=== PATIENT | male | born 1935 | race Caucasian/White ===

== ENCOUNTER 2020-07-03 23:37 | Emergency (ER) | payer MEDICARE, OTHER, SELFPAY ==
[2020-07-03 23:43] VITALS: BP 154/69; PULSE 65; RESP 16; TEMP 36.9; O2SAT 98; BMI 24.3
--- NOTE | 2020-07-03 23:49 | XR_ITS ---
WS: [id number] PORTABLE CHEST HISTORY: Resolved chest pain. COMPARISON: None available. Mild interstitial thickening at the lung bases. No pneumonia. Normal vasculature. No pleural effusion or pneumothorax. Cardiac size: Normal. Mediastinum/Aorta: Mild atherosclerosis aorta. Mild bilateral AC joint arthritis. XR/XR chest 1V portable [id number] IMPRESSION: No acute cardiopulmonary disease. 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
--- NOTE | 2020-07-03 23:49 | ECG_ITS ---
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 Measurements Intervals [place] Rate: 55 P: 50 MA: 157 QRS: -15 QRSD: 93 T: 78 QT: 425 QTc: 410 Interpretive Statements SINUS BRADYCARDIA WITH OCCASIONAL ECTOPIC PREMATURE COMPLEXES SEPTAL MYOCARDIAL INFARCTION , OF INDETERMINATE AGE [40+ ms Q WAVE IN V1/V2] No previous ECG available for comparison Electronically Signed On 07-04-2020 16:39:07 CASTING SUPERVISOR by Eduardo Denson M.D. [id number]
[2020-07-03 23:59] VITALS: BP 154/56; PULSE 56; RESP 16; O2SAT 97
[2020-07-04 00:06] LABS: Basophils # 0.1 10^3/uL (0.0-0.1); Basophils % 0.9 %; Eosinophils # 0.1 10^3/uL (0.0-0.8); Eosinophils % 1.3 %; Hematocrit 40.7 % (42.0-52.0); Hemoglobin 13.1 g/dL (11.7-16.6); Lymphocytes # 2.1 10^3/uL (0.8-4.8); Lymphocytes % 24.3 %; Mean Corpuscular HGB Conc 32.2 g/dL (30.0-36.0); Mean Corpuscular Hemoglobin 31.1 pg (28.0-34.0); Mean Corpuscular Volume 96.7 fL (80-94); Mean Platelet Volume 10.5 fL (7.4-10.4); Monocytes # 0.9 10^3/uL (0.2-0.9); Monocytes % 10.2 %; Neutrophils # 5.49 10^3/uL (1.8-7.7); Neutrophils % 63.1 %; Nucleated Red Blood Cells % 0 %; Platelet Count 160 10^3/cmm (130-400); Red Blood Count 4.21 10^6/uL (4.1-5.3); Red Cell Distribution Width 12.4 % (12.1-15.1); White Blood Count 8.7 10^3/uL (4.0-10.0)
[2020-07-04 00:27] LABS: Troponin(5th) Baseline 11 ng/L (0-15)
[2020-07-04 00:34] VITALS: BP 140/67; PULSE 58; RESP 16; O2SAT 96
[2020-07-04 00:36] LABS: Alanine Aminotransferase 11 U/L (0-41); Albumin Level 4.4 g/dL (3.5-5.2); Alkaline Phosphatase 62 IU/L (40-130); Anion Gap 14.2 (5-19); Aspartate Amino Transferase 15 U/L (0-40); Blood Urea Nitrogen 18 mg/dL (8-23); Calcium 9.1 mg/dL (8.5-10.5); Carbon Dioxide 26 mmol/L (22-29); Chloride 105 mmol/L (98-107); Creatine Phosphokinase 39 U/L (39-308); Globulin 1.6 g/dL (1.3-4.6); Glucose 153 mg/dL (65-115); NT Pro B Type Natriuretic Pept 379 pg/mL (0-450); Osmolality Calculated 297 mOsm/kg (285-295); Potassium 4.2 mmol/L (3.5-5.1); Sodium 141 mmol/L (136-145); Total Bilirubin 0.4 mg/dL (0.15-1.2)
[2020-07-04 01:01] VITALS: BP 140/64; PULSE 56; RESP 21; O2SAT 94
--- NOTE | 2020-07-04 01:19 | ED_ITS ---
HPI - Chest Pain General: Chief Complaint: Chest Pain Stated Complaint: CP Time Seen by Provider: 07/03/20 23:40 History of Present Illness: HPI narrative: 84-year-old gentleman with a history of coronary disease and stenting, presents with chest discomfort that started this evening at home. He has a with Alzheimer's dementia, and he had asked her to go to bed. She argued with him a bit, after which she began to have some chest discomfort. It worsened, so he called an ambulance. He received aspirin and nitroglycerin in route, but states that the pain was gone even before he received the nitroglycerin. MD complaint: chest pain Pertinent past history: coronary artery disease Onset (ago): minute(s) Timing of current episode: now resolved Prior episodes: No Onset: other Pain location: substernal Pain radiation: none Severity: moderate Quality: tightness Relieving factors: other Exacerbating factors: stress Associated symptoms: Deny abdominal pain, dyspnea, fever(s), nausea, palpitations or vomiting Treatment prior to arrival: aspirin and nitroglycerin Review of Systems Const: Denies: fever(s) Eyes: Denies: change in vision ENMT: Denies: odynophagia, post nasal drip or sinus pain Card: Reports: chest pain; Denies: palpitations or irregular heart rhythm Resp: Denies: dyspnea GI: Denies: abdominal pain, nausea or vomiting : Denies: difficulty urinating or hematuria Musc: Denies: neck pain or joint warmth Skin/Breast: Denies: rash, pruritus or erythema Neuro: Denies: headache(s), dizziness or vertigo Psych: Denies: anxiety Physical Exam Const: GENERAL APPEARANCE: well developed ORIENTATION/CONSCIOUSNESS: Yes oriented to person, Yes oriented to place and Yes oriented to time HENMT: COMMON NORMALS: normocephalic, external ears normal and Normal external nose present HEAD & SCALP: normocephalic FACE & SINUS: normal facial exam NOSE: Normal external nose present and No nasal discharge present EXTERNAL EAR: Yes external ears normal Eye: COMMON NORMALS: Equal, round and reactive pupils present, EOMs intact bilaterally and conjunctivae normal EYELID: eyelids normal CONJUNCTIVA: Yes conjunctivae normal PUPIL: Yes Equal, round and reactive pupils present Neck/C-Spine: GENERAL: No tracheal deviation Chest: COMMONS NORMALS: normal inspection of the chest CHEST: No tenderness Resp: COMMON NORMALS: clear to auscultation bilaterally EFFORT & INSPECTION: No tachypneic, No respiratory distress, No retractions, No uses accessory muscles and No tracheal deviation AUSCULTATION: clear to auscultation bilaterally, no rhonchi, no wheezes and lung sounds not diminished Cardio: COMMON NORMALS: regular rate and regular rhythm RATE: regular rate RHYTHM: regular rhythm HEART SOUNDS: no murmurs PERIPHERAL PULSES: radial pulses present GI: INSPECTION: No abdominal distension AUSCULTATION: No Hyperactive bowel sounds present and No Hypoactive bowel sounds present PALPATION: No Guarding due to palpation present (GI) and No Rigid due to palpation PERCUSSION: no dullness to percussion and no tympanic to percussion Neuro: SENSORIUM/ORIENTATION: Yes oriented to person, Yes oriented to place and Yes oriented to time Psych: COMMON NORMALS: mental status grossly normal Skin: COMMON NORMALS: no rashes or lesions noted GENERAL SKIN EXAM: no rashes or lesions noted Course Vital Signs: Vital signs: Vital Signs Temperature 98.4 F 07/03/20 23:43 Pulse Rate 56 L 07/04/20 01:59 Respiratory Rate 16 07/04/20 01:59 Blood Pressure 140/78 07/04/20 01:59 Pulse Oximetry 96 07/04/20 01:59 MDM - Chest Pain 2 MDM Narrative: Medical decision making narrative: 84-year-old male with a history of coronary disease in the past. He presents after a short period of chest pain at home. It was essentially self resolved, although nitroglycerin may have helped it. His first EKG shows a sinus bradycardia with some PVCs and no acute ST changes. His second shows the same. His troponin was normal and did not elevated 2 hours significantly. He has had some runs of frequent PVCs that have been asymptomatic on the monitor since he has been here. His electrolytes are normal. He will be allowed home. He knows to return for any return of his symptoms. Lab Data: Labs: Lab Results 07/03/20 07/03/20 07/03/20 Range/Units 23:53 23:53 23:53 WBC 8.7 (4.0-10.0) 10^3/ uL RBC 4.21 (4.1-5.3) 10^6/u L Hgb 13.1 (11.7-16.6) g/dL Hct 40.7 L (42.0-52.0) % MCV 96.7 H (80-94) fL MCH 31.1 (28.0-34.0) pg MCHC 32.2 (30.0-36.0) g/dL RDW 12.4 (12.1-15.1) % Plt Count 160 (130-400) 10^3/c mm MPV 10.5 H (7.4-10.4) fL Neut % (Auto) 63.1 % Lymph % (Auto) 24.3 % Lewis % (Auto) 10.2 % Eos % (Auto) 1.3 % Baso % (Auto) 0.9 % Neut # (Auto) 5.49 (1.8-7.7) 10^3/u L Lymph # (Auto) 2.1 (0.8-4.8) 10^3/u L [place] # (Auto) 0.9 (0.2-0.9) 10^3/u L Eos # (Auto) 0.1 (0.0-0.8) 10^3/u L Baso # (Auto) 0.1 (0.0-0.1) 10^3/u L Nucleated RBC % (a uto) 0 % Nucleated RBCs # 0.0 /100WBC Sodium 141 (136-145) mmol/L Potassium 4.2 (3.5-5.1) mmol/L Chloride 105 (98-107) mmol/L Carbon Dioxide 26 (22-29) mmol/L Anion Gap 14.2 (5-19) BUN 18 (8-23) mg/dL Creatinine 0.6 L (0.7-1.2) mg/dL GFR Calculation Not Reportable Glucose 153 H (65-115) mg/dL Calculated Osmolal ity 297 H (285-295) mOsm/k g Calcium 9.1 (8.5-10.5) mg/dL Magnesium 2.0 (1.7-2.3) mg/dL Total Bilirubin 0.4 (0.15-1.2) mg/dL AST 15 (0-40) U/L ALT 11 (0-41) U/L Alkaline Phosphata se 62 (40-130) IU/L Creatine Kinase 39 (39-308) U/L Troponin T Baselin e 11 (0-15) ng/L Troponin T 120 Min [place] (0-15) ng/L Delta Troponin T (0-10) ABS# NT-Pro-B Natriuret Pep 379 (0-450) pg/mL Total Protein 6.0 L (6.6-8.7) g/dL Albumin 4.4 (3.5-5.2) g/dL Globulin 1.6 (1.3-4.6) g/dL 07/04/20 Range/Units 01:50 WBC (4.0-10.0) 10^3/ uL RBC (4.1-5.3) 10^6/u L Hgb (11.7-16.6) g/dL Hct (42.0-52.0) % MCV (80-94) fL MCH (28.0-34.0) pg MCHC (30.0-36.0) g/dL RDW (12.1-15.1) % Plt Count (130-400) 10^3/c mm MPV (7.4-10.4) fL Neut % (Auto) % Lymph % (Auto) % Lewis % (Auto) % Eos % (Auto) % Baso % (Auto) % Neut # (Auto) (1.8-7.7) 10^3/u L Lymph # (Auto) (0.8-4.8) 10^3/u L Lewis # (Auto) (0.2-0.9) 10^3/u L Eos # (Auto) (0.0-0.8) 10^3/u L Baso # (Auto) (0.0-0.1) 10^3/u L Nucleated RBC % (a uto) % Nucleated RBCs # /100WBC Sodium (136-145) mmol/L Potassium (3.5-5.1) mmol/L Chloride (98-107) mmol/L Carbon Dioxide (22-29) mmol/L Anion Gap (5-19) BUN (8-23) mg/dL Creatinine (0.7-1.2) mg/dL GFR Calculation Glucose (65-115) mg/dL Calculated Osmolal ity (285-295) mOsm/k g Calcium (8.5-10.5) mg/dL Magnesium (1.7-2.3) mg/dL Total Bilirubin (0.15-1.2) mg/dL AST (0-40) U/L ALT (0-41) U/L Alkaline Phosphata se (40-130) IU/L Creatine Kinase (39-308) U/L Troponin T Baselin e (0-15) ng/L Troponin T 120 Min [place] 11.96 (0-15) ng/L Delta Troponin T 0.96 (0-10) ABS# NT-Pro-B Natriuret Pep (0-450) pg/mL Total Protein (6.6-8.7) g/dL Albumin (3.5-5.2) g/dL Globulin (1.3-4.6) g/dL Discharge Plan Discharge Patient Disposition: Home Clinical Impression: Chest pain Qualifiers: Chest pain type: unspecified Qualified Code(s): R07.9 - Chest pain, unspecified Condition: Stable Prescriptions: No Action Coreg 12.5 mg Tablet 12.5 mg PO DAILY RF: 0 allopurinol 100 mg Tablet 100 mg PO DAILY RF: 0 simvastatin 40 mg Tablet 40 mg PO QPM RF: 0 potassium citrate 10 mEq (1,080 mg) Tablet Extended Release 10 meq PO BID RF: 0 lisinopril 10 mg Tablet 10 mg PO DAILY RF: 0 aspirin 81 mg Tablet,Chewable 81 mg PO BID RF: 0 Centrum Silver Tablet 1 tab PO DAILY RF: 0 Discharge Orders: Discharge Order (Routine); Ordered 07/04/20 Ordered By: Rodrigo Bagley Referrals: Dolores Nettles DO [Referring] - 4-7 days Discharge Diet: Advance as tolerated Discharge Activity: Increase activity as tolerated Patient Instructions: Chest Pain (ED) Activity Restrictions/Additional Instructions: Return for return of chest pain, shortness of breath, fever greater than 100, cough, other concerning symptoms. Coding Level of Care Code ED Corporate Executive for Last Fwd Exam Comprehensive
--- NOTE | 2020-07-04 01:49 | ECG_ITS ---
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 Measurements Intervals [place] Rate: 54 P: 49 WI: 155 QRS: -20 QRSD: 96 T: 69 QT: 438 QTc: 416 Interpretive Statements SINUS BRADYCARDIA WITH OCCASIONAL ECTOPIC PREMATURE COMPLEXES SEPTAL MYOCARDIAL INFARCTION , OF INDETERMINATE AGE [40+ ms Q WAVE IN V1/V2] Compared to ECG 07/03/2020 23:46:29 No significant changes Electronically Signed On 07-04-2020 16:44:29 COUPLES THERAPIST by Eduardo Denson M.D. [id number]
[2020-07-04 01:59] VITALS: BP 140/78; PULSE 56; RESP 16; O2SAT 96
[2020-07-04 02:19] LABS: Troponin 5 2HR 11.96 ng/L (0-15); Troponin 5 2HR Delta 0.96 ABS# (0-10)
[2020-07-04 02:49] VITALS: BP 147/67; PULSE 56; RESP 16; TEMP 36.6; O2SAT 96
== END 2020-07-04 02:50 | disposition home or self-care (01) ==
PROVIDERS: Emergency Provider Emergency Medicine
DX: R07.9 Chest pain, unspecified (principal); Z79.82 Long term (current) use of aspirin
CPT/HCPCS: 12345; 71045; 80053; 82550; 83735; 83880; 84484; 85025; 93005; 99283; 99284

== ENCOUNTER 2020-09-15 07:03 | Outpatient (CLI) | payer MEDICARE, OTHER, SELFPAY ==
--- NOTE | 2020-09-15 07:00 | XR_ITS ---
WS: [id number] KUB, AP view, 09/15/2020 Clinical Data: HX OF KIDNEY STONES Comparison: None. Findings: No abnormal intraabdominal masses or calcifications are seen. There is no dilatated small bowel or ev idence of obstruction. Fecal material in colon gas obscure detail over both kidneys. Small vascular calcifications are noted . There are clips on the right side of the true pelvis from surgery. 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 XR/XR KUB [id number] Impression: 1. Negative for renal or ureteral calculi. 2. Large amount of fecal material throughout the colon.
== END 2020-09-15 07:04 | disposition home or self-care (01) ==
LOC: RAD 07:17
PROVIDERS: PCP Registered Nurse; Visit Provider Urology
DX: Z87.442 Personal history of urinary calculi (principal)
CPT/HCPCS: 74018; 81003; 88112

== ENCOUNTER → 2020-09-16 08:43 | Outpatient (BNVA) | payer MEDICARE, OTHER, SELFPAY | PROVIDERS: PCP Registered Nurse; Visit Provider Urology | DX: Z01.812 Encounter for preprocedural laboratory examination (principal); D49.4 Neoplasm of unspecified behavior of bladder | CPT/HCPCS: 87635 ==

== ENCOUNTER 2020-09-22 14:27 | Inpatient (IN) | payer MEDICARE, OTHER, SELFPAY ==
[2020-09-20 09:08] VITALS: BMI 28.3
[2020-09-22] VITALS (24 sets, daily range): BP systolic 146–223; BP diastolic 65–104; PULSE 60–82; RESP 9–18; TEMP 36.2–36.6; O2SAT 93–98
--- NOTE | 2020-09-22 11:28 | XR_ITS ---
WS: [id number] Chest 2 views, 09/22/2020 Clinical Data: Newly diagnosed bladder cancer Comparison: Portable chest, 07/03/2020. Findings: No nodules or masses are seen. There is a small right pleural effusion The heart is normal. The pulmonary vascularity is not increased. No pneumonia or pneumothorax is seen. The aortic arch an d descending aorta show calcification and tortuosity. There is a dextroscoliosis. XR/XR chest 2V* [id number] Impression: Atherosclerosis.
--- NOTE | 2020-09-22 12:12 | ECG_ITS ---
[facility] Test Date: 2020-09-22 Pat Name: Alden Castillo Department: Room: Gender: Male Gta: : 1935 Requested By: Zackary Lynn Order Number: [id number] Royce MD: Eduardo Denson M.D. Measurements Intervals [place] Rate: 60 P: 49 NM: 139 QRS: -8 QRSD: 106 T: 69 QT: 431 QTc: 431 Interpretive Statements SINUS RHYTHM WITH OCCASIONAL VENTRICULAR PREMATURE COMPLEXES WITH OCCASIONAL SUPRAVENTRICULAR PREMATURE COMPLEXES ANTEROSEPTAL MYOCARDIAL INFARCTION [40+ ms Q WAVE IN V1-V4], OF INDETERMINATE AGE Compared to ECG 07/04/2020 01:44:30 Ventricular premature complex(es) now present Sinus bradycardia no longer present Myocardial infarct finding still present Electronically Signed On 09-22-2020 16:02:09 HELP DESK ASSISTANT by Eduardo Denson M.D. [id number]
[2020-09-22] MEDS: sodium chloride 0.9% 1,000 ML 30 ML IV (12:16)
[2020-09-22 12:20] LABS: Glucose Point of Care 108 mg/dL (70-110)
[2020-09-22 12:34] LABS: Basophils # 0.1 10^3/uL (0.0-0.1); Basophils % 0.8 %; Eosinophils # 0.1 10^3/uL (0.0-0.8); Eosinophils % 1.3 %; Hematocrit 43.1 % (42.0-52.0); Hemoglobin 14.3 g/dL (11.7-16.6); Lymphocytes # 1.9 10^3/uL (0.8-4.8); Lymphocytes % 26.9 %; Mean Corpuscular HGB Conc 33.2 g/dL (30.0-36.0); Mean Corpuscular Hemoglobin 31.4 pg (28.0-34.0); Mean Corpuscular Volume 94.5 fL (80-94); Mean Platelet Volume 10.6 fL (7.4-10.4); Monocytes # 0.6 10^3/uL (0.2-0.9); Monocytes % 8.9 %; Neutrophils # 4.45 10^3/uL (1.8-7.7); Nucleated Red Blood Cells % 0 %; Platelet Count 174 10^3/cmm (130-400); Red Blood Count 4.56 10^6/uL (4.1-5.3); Red Cell Distribution Width 12.7 % (12.1-15.1); White Blood Count 7.2 10^3/uL (4.0-10.0)
[2020-09-22 12:57] LABS: Alanine Aminotransferase 11 U/L (0-41); Albumin Level 4.5 g/dL (3.5-5.2); Alkaline Phosphatase 70 IU/L (40-130); Aspartate Amino Transferase 18 U/L (0-40); Blood Urea Nitrogen 15 mg/dL (8-23); Calcium 9.4 mg/dL (8.5-10.5); Carbon Dioxide 28 mmol/L (22-29); Chloride 104 mmol/L (98-107); Globulin 2.9 g/dL (1.3-4.6); Glucose 113 mg/dL (65-115); Osmolality Calculated 292 mOsm/kg (285-295); Sodium 140 mmol/L (136-145); Total Bilirubin 1.1 mg/dL (0.15-1.2); Total Protein 7.4 g/dL (6.6-8.7)
--- NOTE | 2020-09-22 12:57 | P.ANESASSM_ITS ---
Pre-Anesthetic Assessment Pre-Anesthetic Assessment: Height/Weight: Height 1.65 m Weight 77.111 kg Temp Pulse Resp BP Pulse Ox 97.4 F L 60 18 171/90 96 09/22/20 12:05 09/22/20 12:05 09/22/20 12:05 09/22/20 12:05 09/22/20 12:05 Preop Diagnosis: Newly diagnosed bladder cancer Proposed Procedure: Operation Date: 09/22/20 13:05 Proposed Procedures p Cystoscopy 33316 N32.9(Not Applicable) - Aguilar Orlando MD s Transurethral Resection Bladder Tumor(Not Applicable) - Aguilar Orlando MD Was Beta Bethany taken within 24 hours: N/A Last intake: Intake Last Liquid Date 09/22/20 Last Liquid Time 06:00 Last Solid Date 09/21/20 Last Solid Time 23:00 Social: Social History: No alcohol and No tobacco Exam: Pre-Anes Outpt Exam: alert, oriented x 3 and clear to auscultation bilaterally Airway: Submandibular: WNL Cervical ROM: WNL MP: 2 Dentition: False CV/HEM: CV/HEM: Anemia, Arrythmia, CAD (stents) and HTN Metabolic: Metabolic: DM Anesthetic Plan: ASA status: 3 Anesthesia: General Risk of > 500 ml blood loss (7ml/kg in children): No Meds/Allergies Current Medications: Current Medications Generic Name Dose Route Start Last Admin Trade Name Freq PRN Reason Stop Dose Admin Sodium Chloride 1,000 mls @ 30 ml s/hr 09/22/20 12:00 09/22/20 12:16 Sodium Chloride 0.9% IV 09/23/20 11:59 30 mls/hr .Q24H GUILLERMINA Administration PFSH Anesthesia PFSH: Medical History (Updated 09/15/20 @ 15:12 by Aguilar Orlando MD) CAD (coronary artery disease) DM2 (diabetes mellitus, type 2) Hematuria History of kidney stones Lower urinary tract symptoms (LUTS) Mixed hyperlipidemia Urinary frequency Surgical History (Updated 09/15/20 @ 15:11 by Aguilar Orlando MD) H/O lithotripsy S/P appendectomy S/P arterial stent Family History Family/Other No problems noted. Social History Smoking and tobacco status: never smoked Alcohol intake: never Current occupational status: retired Data Anesthesia CBC & Chem 7: 09/22/20 12:16 09/22/20 12:16 Other Labs: Laboratory Results - last 48 hr 09/22/20 09/22/20 12:15 12:16 WBC 7.2 RBC 4.56 Hgb 14.3 Hct 43.1 MCV 94.5 H MCH 31.4 MCHC 33.2 RDW 12.7 Plt Count 174 MPV 10.6 H Neut % (Auto) 62.0 Lymph % (Auto) 26.9 [place] % (Auto) 8.9 Eos % (Auto) 1.3 Baso % (Auto) 0.8 Neut # (Auto) 4.45 Lymph # (Auto) 1.9 [place] # (Auto) 0.6 Eos # (Auto) 0.1 Baso # (Auto) 0.1 Nucleated RBC % (auto) 0 Nucleated RBCs # 0.0 POC Glucose 108 Cardiac Studies: No Data to Display
--- NOTE | 2020-09-22 12:59 | P.HPUD_ITS ---
Surgery/Procedure H&P Update DATE OF PROCEDURE: September 22, 2020 DATE H&P PERFORMED: 09/15/20 H&P UPDATE INFORMATION: I have reviewed H&P completed within last 30 days, I have examined patient prior to procedure, No changes to prior documentation and H&P is in [facility] [place] on date indicated PREOP DIAGNOSIS: Newly diagnosed bladder cancer PRIMARY INDICATION FOR PROCEDURE: Reviewed the findings of the cystoscopy in clinic with his daughter Hattie. Discussed plans for today, perioperative expectations, significance of pathology information when available etc. PLANNED PROCEDURE: Operation Date: 09/22/20 13:05 Proposed Procedures p Cystoscopy 28356 N32.9(Not Applicable) - Aguilar Orlando MD s Transurethral Resection Bladder Tumor(Not Applicable) - Aguilar Orlando MD
--- NOTE | 2020-09-22 13:01 | PM.OP ---
Operative Report Date of procedure: September 22, 2020 Pre-op Diagnosis: Newly diagnosed bladder cancer Post-op diagnosis: same Procedure Done: Cystoscopy, transurethral section of bladder tumor large (>5 cm). Specimens removed/disposition: Bladder wall resection Pathology: Bladder wall resection samples Surgeon: Darion Anesthesia: General Estimated blood loss: Minimal Complications: None Condition: stable Disposition: PACU Brief History: Mr. Castillo is an 85-year-old white male recently evaluated for gross and microscopic hematuria. 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 Admitted now for TURBT. Aspirin and fish oil have been held. Procedure: After routine preoperative evaluation examination and obtaining of informed consent he was taken to the operating suite on 09/22/2020 where general anesthesia was administered without difficulty after appropriate timeout was performed, SCDs confirmed to be functioning, preoperative antibiotics administered, beta-norma protocol confirmed. Prepped and draped in the usual sterile fashion in dorsolithotomy position paying careful attention to avoiding pressure points. 21 Emirati cystoscope with 30 degree lens was introduced into the urethra meatus and advanced into the bladder to videoscopy. Bladder was systematically examined with 30 and 70 degree lenses. Findings identified in clinic were confirmed intraoperatively. Urethra was calibrated with [place] sounds and easily accommodated 30 Emirati. 2% lidocaine jelly was instilled into the urethra then a 25 Emirati continuous-flow resectoscope sheath with visual obturator in place was advanced into the bladder without difficulty. The gyrus bipolar system was utilized with the super loop for resection and the button probe for fulguration of the base. Visible tumor was resected with the super loop. At the base of resection in several areas muscle was clearly identified. Both flat and papillary tumor was identified again. There appeared to be 1 diverticulum that had a small neck that had some evidence of bladder cancer at the bladder neck. I could not see into the diverticulum adequately to rule out involvement of cancer there as well. The button probe was then utilized to fulgurate the base of the resection site. It was also used to fulgurate the visible tumor identified at the neck of the diverticulum. At the completion of the resection and fulguration there is no active bleeding. All chips were evacuated from the bladder. Hemostasis was confirmed and then the bladder was drained with a 22 Emirati three-way Dominique catheter with light CBI running in the efflux remaining clear. Catheter was functioning well. He tolerated procedure well without complications and was awakened in the operating room and returned to the recovery room in stable condition. PLANS: 1. Admit to observation status. 2. Anticipate discharge tomorrow with or without catheter.
[2020-09-22] MEDS: levofloxacin-dextrose 5 % 500 MG/100 ML PREMIX 100 MG IV (13:17)
[2020-09-22] MEDS: lidocaine 2% Urojet 20 mL (13:46)
--- NOTE | 2020-09-22 14:35 | P.PCN_ITS ---
PACU note PACU note: VSS, Good respiratory effort, report to HARDWARE DEVELOPER Post-Anesthesia Exam: awake
--- NOTE | 2020-09-22 14:35 | PM.PACU ---
PACU note PACU note: VSS, Good respiratory effort, report to SIDE STAPLER Post-Anesthesia Exam: awake
[2020-09-22] MEDS: hyDRALAzine 20 mg/mL INJ 1 mL 10 MG IVP ×2 (14:43→15:00)
[2020-09-22] MEDS: fentaNYL 50 mcg/mL INJ 2mL IVP ×2 (15:02→15:07)
--- NOTE | 2020-09-22 15:37 | PC.NURSE ---
Addendum entered by Rosi Renee RN 09/22/20 15:55: continuous bladder irrigation clamped per Dr. Ch orders. Original Note: Patient here from surgery transferred to bed X3 assist, vitals taken as documented, abdomen distended but soft on palpation, Liana charge nurse at bedside, called and reported finding to Dr. Orlando, new orders received to return to surgery, son at bedside.
[2020-09-22] MEDS: morphine 4 mg/mL SDV 1 mL 1 MG IVP ×3 (15:45→23:12)
--- NOTE | 2020-09-22 15:47 | PM.MISC ---
Miscellaneous Note Purpose of Documentation: Postop check. Patient was complaining of pain postop with burning of urination and bladder fullness in the PACU, but his bladder was not distended nor was his abdomen. Catheter was functioning well. CBI was running clear and normally. After transfer to the floor when the nurses were performing their initial assessment it was apparent that his abdomen was distended. CBI was stopped and I was called. There appeared to be significant change with distention of his abdomen; it was not tense though and he was not in distress but was complaining of persistent pain.. He was clinically stable. Concern was for the potential that the catheter itself may be malpositioned, possible bladder perforation etc with possible bladder irrigation extravasation I recommended reevaluation under anesthesia with cystoscopy. Reviewed with his son who was at the bedside. Recommended emergent evaluation under anesthesia.
--- NOTE | 2020-09-22 16:05 | PC.NURSE ---
Patient taken back to surgery via stretcher.
--- NOTE | 2020-09-22 16:50 | P.ANESUD_ITS ---
Pre-Anesthetic Update Pre-Anesthetic Assessment: Date of Surgery/Procedure: 09/22/20 Preop Tana gnosis: Newly diagnosed bladder cancer Proposed Procedure: Operation Date: 09/22/20 13:05 Proposed Procedures p Cystoscopy 82772 N32.9(Not Applicable) - Aguilar Orlando MD s Transurethral Resection Bladder Tumor(Not Applicable) - Aguilar Orlando MD Operation Date: 09/22/20 16:35 Proposed Procedures p Cystoscopy(Not Applicable) - Aguilar Orlando MD Any changes to Pre-Anesthetic Assessment?: Yes Changes from Pre-Anesthetic Assessment: On patient with distended abdomen and pain. Concern for perforted bladder. NPO Last Intake: Intake Last Liquid Date 09/22/20 Last Liquid Time 06:00 Last Solid Date 09/21/20 Last Solid Time 23:00 Labs Last 48hrs: Laboratory Results - last 48 hr 09/22/20 09/22/20 09/22/20 12:15 12:16 12:16 WBC 7.2 RBC 4.56 Hgb 14.3 Hct 43.1 MCV 94.5 H MCH 31.4 MCHC 33.2 RDW 12.7 Plt Count 174 MPV 10.6 H Neut % (Auto) 62.0 Lymph % (Auto) 26.9 [place] % (Auto) 8.9 Eos % (Auto) 1.3 Baso % (Auto) 0.8 Neut # (Auto) 4.45 Lymph # (Auto) 1.9 [place] # (Auto) 0.6 Eos # (Auto) 0.1 Baso # (Auto) 0.1 Nucleated RBC % (a uto) 0 Nucleated RBCs # 0.0 Sodium 140 Potassium 4.0 Chloride 104 Carbon Dioxide 28 Anion Gap 12.0 BUN 15 Creatinine 0.6 L GFR Calculation Not Reportable Glucose 113 POC Glucose 108 Calculated Osmolal ity 292 Calcium 9.4 Total Bilirubin 1.1 AST 18 ALT 11 Alkaline Phosphata se 70 Total Protein 7.4 Albumin 4.5 Globulin 2.9 Vitals: Temperature 97.1 F L 09/22/20 15:50 Temperature Source Axillary 09/22/20 15:50 Pulse Rate 71 09/22/20 15:50 Respiratory Rate 18 09/22/20 15:50 Respiratory Effort Non-Labored 09/22/20 15:07 Respiratory Depth Normal 09/22/20 15:07 Respiratory Patter n 09/22/20 15:07 Blood Pressure 188/75 09/22/20 15:50 Blood Pressure Milly n 112 09/22/20 15:50 Blood Pressure Pos ition Semi Fowlers 09/22/20 15:50 Pulse Oximetry 96 09/22/20 15:50 Oxygen Delivery Me thod 09/22/20 15:50 Exam: Pre-Anes Outpt Exam: alert, oriented x 3, clear to auscultation bilaterally and regular rate & rhythm Additional Exam Findings (including area of procedure): ASA 3E Cardiac Studies: No Data to Display
--- NOTE | 2020-09-22 16:56 | ANE.PACU2 ---
Inpatient post-anesthesia follow up: Airway intact: Yes Vital signs: Temperature 97.1 F Pulse Rate 71 Respiratory Rate 18 Blood Pressure 188/75 Pulse Oximetry 96 Oxygen Delivery Me thod Room Air Oxygen Flow Rate Fraction of Inspir ed Oxygen Hydration adequate: Yes Nausea and vomiting: No Pain level: 2 Mental status: Baseline Additional Comments: Hypertension postop.
--- NOTE | 2020-09-22 17:03 | PM.OP ---
Operative Report Date of procedure: September 22, 2020 Pre-op Diagnosis: Distended abdomen, possible bladder perforation postoperatively Post-op Diagnosis: No evidence of perforation Procedure Done: Cystoscopy Implants: 20 [place] coud? tip catheter Pathology: none sent Surgeon: Darion Anesthesia: General Estimated blood loss: Minimal Urine output: Not measured Complications: None Findings: Careful inspection revealed no evidence of perforation. He had several diverticuli that were carefully inspected. The bladder held the fluid that was instilled. There was no significant bleeding. I could not identify any evidence of perforation on careful examination. Condition: stable Disposition: PACU Brief History: Mr. Castillo is a very pleasant 85-year-old white male who today underwent a TURBT large on the right lateral bladder wall. The procedure itself was uneventful. Postoperatively he was complaining of significant catheter discomfort. It appeared that his abdomen was soft with no evidence of CBI or bladder problems. On the floor though after transfer with initial nursing assessment there was concern about distention of his abdomen. I examined him immediately and agreed that he did appear to be more bloated than I had identified in the PACU although certainly not tense. He was still complaining of increasing pain. He was stable clinically but concern for perforation was entertained and for that reason I recommended emergent rescoping of his bladder and catheter replacement possible repair pending findings. Procedure: After emergent evaluation and examination he was taken to the operating room emergently where general anesthesia was administered without difficulty. He was prepped and draped in the usual sterile fashion with careful attention to avoiding pressure points. The 21 [place] cystoscope was advanced into the bladder. There was some blood in the bladder but there was no active bleeding. The bladder was partially distended to improve visualization and then carefully inspected. The concern was the possibility of a possible perforation at the site of resection but there was no evidence of that. He had multiple diverticuli which were then carefully inspected and there was no evidence of perforation in any of those either. I could not find any mucosal disruption. There was a diverticulum that was a very narrow necked diverticulum that was identified during the resection in the middle of the resection but there is no deep resection around it. I could not identify any evidence of extravasation from that as well. After anesthesia was administered his abdomen appeared to be less distended and very soft. No evidence of fluid retention in the abdomen. The bladder was then drained with a 20 [place] coud? tip catheter (2 way) and catheter function was confirmed with irrigation. Irrigation was light pink. No severe bleeding. He tolerated the procedure well without complications and was awakened in the operating room and returned to recovery room in stable condition. In the PACU his discomfort related to the catheter was much improved. PLANS: 1. Back to the floor after recovery in the PACU 2. Consider cystogram before catheter removal. Hopefully he can tolerate the catheter well enough to allow more healing before the catheter is removed and discharge with catheter in place.
[2020-09-22 18:12] LABS: Glucose Point of Care 193 mg/dL (70-110)
--- NOTE | 2020-09-22 18:15 | ANE.PACU2 ---
Inpatient post-anesthesia follow up: Airway intact: Yes Vital signs: Temperature 97.4 F Pulse Rate 77 Respiratory Rate 16 Blood Pressure 163/67 Pulse Oximetry 93 Oxygen Delivery Me thod Room Air Oxygen Flow Rate 8 Fraction of Inspir ed Oxygen Hydration adequate: Yes Nausea and vomiting: No Pain level: 2
[2020-09-22] MEDS: HYDROcodone-acetaminophen 5-325 mg Tablet 1 TAB PO ×2 (18:34→23:10)
[2020-09-22 20:48] LABS: Glucose Point of Care 140 mg/dL (70-110)
[2020-09-22] MEDS: phenazopyridine 100 mg Tablet 200 MG PO (21:22)
[2020-09-22] MEDS: atorvastatin 40 mg Tablet 20 MG PO (21:22)
[2020-09-23] VITALS: BP 137/67; PULSE 82; RESP 15; TEMP 36.8; O2SAT 94
[2020-09-23 04:00] VITALS: BP 112/69; PULSE 65; RESP 18; TEMP 37.6; O2SAT 94
[2020-09-23 06:40] LABS: Glucose Point of Care 122 mg/dL (70-110)
[2020-09-23 08:00] VITALS: BP 121/53; PULSE 64; RESP 16; TEMP 36.7; O2SAT 94
[2020-09-23] MEDS: lisinopril 10 mg Tablet PO (08:40)
[2020-09-23] MEDS: metformin 500 mg Tablet PO (08:40)
[2020-09-23] MEDS: allopurinol 100 mg Tablet PO (08:40)
[2020-09-23] MEDS: carvedilol 12.5 mg Tablet PO (08:41)
--- NOTE | 2020-09-23 09:30 | PM.PN ---
Subjective Subjective: Interval history: Postoperative day #1 TURBT and take back for cystoscopy to confirm bladder integrity. Much decreased discomfort related to the catheter today. Urine is draining well without CBI. Still pink. Abdomen is soft. We will change to inpatient status and maintain hospitalization for 1 more night with anticipation of discharge tomorrow morning. Rationale because of his age, frailty, issues related to the catheter drainage yesterday, and still with some hematuria postop day #1 TURBT. Explained to the patient in detail. Medications: Reviewed: Yes Vitals/I&O/Wt Last Vital Signs Temp 98.0 F 09/23/20 08:00 Pulse 64 09/23/20 08:00 Resp 16 09/23/20 08:00 BP 121/53 09/23/20 08:00 Pulse Ox 94 09/23/20 08:00 09/22/20 09/23/20 09/23/20 22:59 06:59 14:59 Intake Total 1000 / 1100 360 / 360 Output Total 400 / 400 100 / 500 Balance 600 / 700 -100 / 600 360 / 360 Physical Exam Const: COMMON NORMALS: no acute distress, alert and well nourished GENERAL APPEARANCE: well kempt and well developed ORIENTATION/CONSCIOUSNESS: not confused HENMT: COMMON NORMALS: normocephalic and atraumatic HEAD & SCALP: normocephalic and atraumatic Eye: COMMON NORMALS: conjunctivae normal and no scleral icterus CONJUNCTIVA: Yes conjunctivae normal Neck/C-Spine: COMMON NORMALS: full ROM GENERAL: Yes normal visual inspection Resp: COMMON NORMALS: normal respiratory effort EFFORT & INSPECTION: No labored and No Actively coughing Extremity: COMMON NORMALS: no clubbing, cyanosis or edema Neuro: COMMON NORMALS: no focal motor deficits SENSORIUM/ORIENTATION: Yes alert Psych: COMMON NORMALS: mental status grossly normal APPEARANCE: Yes grossly normal and Yes well kempt ATTITUDE: Yes calm and Yes engaged Skin: COMMON NORMALS: no rashes or lesions noted and no jaundice GENERAL SKIN EXAM: no rashes or lesions noted Urinary Catheter Management^: 3-way Urethral CBI: Cath Placed During This Visit: yes, but has since been removed by the nurse Reason for Continuing Indwelling Catheter: Required Immobilization for Trauma or Surgery or Anesthesia Urinary Catheter Date of Insertion: 09/22/20 Urinary Catheter Time of Insertion: 16:40 Date Urinary Catheter Removed: 09/22/20 Time Urinary Catheter Discontinued: 16:20 Data : 09/22/20 12:16 09/22/20 12:16 A&P Assessment and plan (1) Lesion of bladder: Status: Acute (2) Lower urinary tract symptoms (LUTS): Status: Acute (3) Gross hematuria: Status: Acute Attestations Medical Necessity Statement*: Require care over at least 2 midnights. Changing to inpatient status this morning but anticipate likely discharge tomorrow. Risk associated with discharge would be substantial at this point due to the second hematuria and overall frailty. Concern also function given the events of yesterday. Coding Level of Care Code Acute Hydraulic Technician for Michaelg Fwd Exam Comprehensive Diagnoses Lesion of bladder N32.9 Lower urinary tract symptoms (LUTS) R39.9 Gross hematuria R31.0
[2020-09-23 11:54] VITALS: BP 166/64; PULSE 63; RESP 17; TEMP 36.9; O2SAT 95
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
[2020-09-23 12:03] LABS: Glucose Point of Care 128 mg/dL (70-110)
[2020-09-23 16:00] VITALS: BP 131/68; PULSE 67; RESP 18; TEMP 36.4; O2SAT 93
--- NOTE | 2020-09-23 16:24 | PC.NURSE ---
Patient reports feeling sick to stomach provided, saltine crackers, patient unable to tolerate, called Dr. Orlando and notified, new orders received for zofran PRN, see MAR for further details.
[2020-09-23] MEDS: ondansetron 2 mg/ML SDV 2 mL 4 MG IVP ×2 (17:02→22:56)
[2020-09-23 17:45] LABS: Glucose Point of Care 133 mg/dL (70-110)
[2020-09-23 18:51] VITALS: BP 162/71; PULSE 71; RESP 18; TEMP 36.5; O2SAT 93
[2020-09-23] MEDS: atorvastatin 40 mg Tablet 20 MG PO (21:52)
[2020-09-23] MEDS: phenazopyridine 100 mg Tablet 200 MG PO (21:55)
[2020-09-23 21:56] LABS: Glucose Point of Care 144 mg/dL (70-110)
[2020-09-24 00:37] VITALS: BP 156/70; PULSE 72; RESP 18; TEMP 36.6; O2SAT 94
[2020-09-24 04:00] VITALS: BP 166/72; PULSE 64; RESP 18; TEMP 36.7; O2SAT 93
[2020-09-24 06:51] LABS: Glucose Point of Care 177 mg/dL (70-110)
[2020-09-24 07:47] VITALS: BP 166/74; PULSE 67; RESP 18; TEMP 36.8; O2SAT 93
[2020-09-24] MEDS: allopurinol 100 mg Tablet PO (08:41)
[2020-09-24] MEDS: lisinopril 10 mg Tablet PO (08:41)
[2020-09-24] MEDS: carvedilol 12.5 mg Tablet PO (08:42)
[2020-09-24] MEDS: metformin 500 mg Tablet PO (08:42)
--- NOTE | 2020-09-24 09:59 | P.DS_ITS ---
Discharge Providers Date of Admission: 09/23/20 09:30 Date of Discharge: September 24, 2020 Attending Provider at Admission: Aguilar Orlando MD Attending Provider at Discharge: Aguilar Orlando MD Primary Care Provider: SU Hodgson Diagnoses at Discharge Discharge Diagnosis (1) Lesion of bladder: Status: Acute (2) Lower urinary tract symptoms (LUTS): Status: Acute (3) Gross hematuria: Status: Acute Reason for Visit Reason for Visit: Newly diagnosed bladder tumor. Hospital Course Hospital Course He was admitted on the day of the procedure which went well. 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 There was a diverticulum in the midst of this that could not be adequately explored due to inability to get a scope into it. There did appear to be tumor at the neck of the diverticulum which was fulgurated. Postoperatively his abdomen seemed distended and he was having severe pain unrelated to the catheter. There was concern that potentially he had perforated and for that reason he was taken back to the operating room where cystoscopy was repeated and there was no evidence of any obvious perforation. An alternative type catheter was used and postoperatively from the second cystoscopy he did very well. His urine remained clear. He was comfortable with the catheter. The pain completely resolved. There is no other additional concerns related to a possible bladder injury after that point. He was observed an extra night in the hospital because of the above reasons and he did well. On 09/24/2020 he was felt to be a good candidate for further convalescence at home. He was discharged in stable condition with leg and night bag and plans for a cystogram to confirm no leak on 09/28/2019 prior to clinic visit for voiding trial if the bladder looks fine. Hopefully by that time we will have the pathology report back as well. We will also consider CT scan ABDOMEN/PELVIS to evaluate for the right sided diverticulum. Physical Exam Const: COMMON NORMALS: no acute distress, alert and well nourished GENERAL APPEARANCE: well kempt and well developed ORIENTATION/CONSCIOUSNESS: not confused HENMT: COMMON NORMALS: normocephalic and atraumatic HEAD & SCALP: normocephalic and atraumatic Eye: COMMON NORMALS: conjunctivae normal and no scleral icterus CONJUNCTIVA: Yes conjunctivae normal Neck/C-Spine: COMMON NORMALS: full ROM GENERAL: Yes normal visual inspect ion Resp: COMMON NORMALS: normal respiratory effort EFFORT & INSPECTION: No labored and No Actively coughing : COMMON NORMALS: Yes no CVA tenderness BLADDER/KIDNEY EXAM: Yes no CVA tenderness OTHER: Normal phallus. Urine is Pyridium stained. No bleeding. Back/Pelvis: COMMON NORMALS: no CVA tenderness Neuro: COMMON NORMALS: no focal motor deficits SENSORIUM/ORIENTATION: Yes alert Psych: APPEARANCE: Yes grossly normal and Yes well kempt ATTITUDE: Yes calm and Yes engaged Skin: COMMON NORMALS: no rashes or lesions noted and no jaundice GENERAL SKIN EXAM: no rashes or lesions noted Urinary Catheter Management^: 3-way Urethral CBI: Cath Placed During This Visit: yes, but has since been removed by the nurse Reason for Continuing Indwelling Catheter: Required Immobilization for Trauma or Surgery or Anesthesia Urinary Catheter Date of Insertion: 09/22/20 Urinary Catheter Time of Insertion: 16:40 Date Urinary Catheter Removed: 09/22/20 Time Urinary Catheter Discontinued: 16:20 Discharge Data Data Completed and Pending: Completed Studies During Hospitalization Category Date Time Status XR chest 2V* 7104 6 Routine Exams 09/22/20 11:28 Completed Pending at discharge Category Date Time Status Pathology: Surgic al [PTH] Routine Pth 09/22/20 14:16 Received Labs from last 24 hours 09/24/20 09/23/20 09/23/20 06:47 21:25 17:30 POC Glucose 177 H 144 H 133 H 09/23/20 11:57 POC Glucose 128 H Vitals: Last Vital Signs Temp 98.2 F 09/24/20 07:47 Pulse 67 09/24/20 07:47 Resp 18 09/24/20 07:47 BP 166/74 09/24/20 07:47 Pulse Ox 93 09/24/20 07:47 Discharge Plan Discharge Patient Disposition: Home Condition: Stable Prescriptions: New cephalexin 500 mg capsule 500 mg PO BID 7 Days Qty: 14 RF: 0 Continued metformin 500 mg tablet 500 mg PO DAILY RF: 0 carvedilol [Coreg] 12.5 mg Tablet 12.5 mg PO DAILY RF: 0 allopurinol 100 mg Tablet 100 mg PO DAILY RF: 0 simvastatin 40 mg Tablet 40 mg PO QPM RF: 0 potassium citrate 10 mEq (1,080 mg) Tablet Extended Release 10 meq PO BID RF: 0 lisinopril 10 mg Tablet 10 mg PO DAILY RF: 0 [id number] Tablet 1 tab PO DAILY RF: 0 Held omega-3 fatty acids [Fish Oil Concentrate] 1,000 mg capsule 1,000 mg PO DAILY RF: 0 Hold Instructions: Resume on 09/30/20. aspirin 81 mg Tablet,Chewable 81 mg PO BID RF: 0 Hold Instructions: Resume on 09/30/20. Discontinued lidocaine HCl 2 % jelly 1 applic intra-urethral ONCE Qty: 1 RF: 0 Discharge Orders: Discharge Order (Routine); Ordered 09/24/20 Ordered By: Aguilar Orlando Referrals: Aguilar Orlando MD [Physician] - 09/28/20 (He needs a cystogram prior to the procedure. Voiding trial in clinic if no leak on Cystogram) Discharge Diet: Usual diet Discharge Activity: Limit activity as instructed Patient Instructions: Dominique Catheter Care, Transurethral Resection of Bladder Tumors (DC), Urinary Leg Bag (GEN) Activity Restrictions/Additional Instructions: 1. The catheter will remain in until I see you in my office. We will obtain a cystogram to make sure that the bladder is healing well before removing the catheter. That will be performed at the hospital prior to the visit. 2. You can use the leg bag under your clothing to drain the catheter or the larger night bag. Both are fine. It will be your preference. Please be cautious if you leave the bigger bag on to avoid tripping over the tubing. 3. Please call [phone] to confirm appointment time for the above cystogram and clinic visit afterwards. Discharge Attestations Time Spent in Discharge Care*: greater than 30 min Specific Discharge Activities: educating patient, educating and/or supporting family/caregiver and documenting/other paperwork Status at Discharge: Cognitive status at discharge: cognitively intact , Behavioral status at discharge: cooperative , Quality Metrics Clinical Quality Measures During this hospital stay, did patient experience: None Coding Level of Care Code Acute Boarding Machine Operator for Last Fwd Exam Comprehensive Diagnoses Lesion of bladder N32.9 Lower urinary tract symptoms (LUTS) R39.9 Gross hematuria R31.0 Time Spent (min) 40
[2020-09-24 10:56] LABS: Glucose Point of Care 150 mg/dL (70-110)
[2020-09-24 11:39] VITALS: BP 168/79; PULSE 65; RESP 18; TEMP 36.3; O2SAT 95
--- NOTE | 2020-09-24 12:28 | PC.NURSE ---
discussed in length feliz catheter care at home and patients son here and demonstrated feliz bag change to leg bag, patient and patients son verbalized comfortable with feliz catheter care at home, denies further questions or concerns regarding discharge or care.
[2020-09-24 12:30] VITALS: BP 168/79; PULSE 65; RESP 18; TEMP 36.3; O2SAT 95
== END 2020-09-24 12:31 | disposition home or self-care (01) | DRG 670 ==
LOC: MEDSURG 14:27
PROVIDERS: Admitting Provider Urology; PCP Registered Nurse; Visit Provider Urology
PROC: 0TJB8ZZ Inspection of Bladder, Via Natural or Artificial Opening Endoscopic (ICD-10-PCS; CPT 52000; principal; 2020-09-22 13:05)
PROC: 0TBB8ZZ Excision of Bladder, Via Natural or Artificial Opening Endoscopic (ICD-10-PCS; 2020-09-22 13:05)
DX: C67.3 Malignant neoplasm of anterior wall of bladder (principal); Z79.84 Long term (current) use of oral hypoglycemic drugs; Z79.82 Long term (current) use of aspirin; R31.0 Gross hematuria; I10 Essential (primary) hypertension; I25.10 Atherosclerotic heart disease of native coronary artery without angina pectoris; Z95.5 Presence of coronary angioplasty implant and graft; E11.9 Type 2 diabetes mellitus without complications; D64.9 Anemia, unspecified; E78.2 Mixed hyperlipidemia; Z87.442 Personal history of urinary calculi
CPT/HCPCS: 12345; 36416; 71046; 80053; 82962; 85025; 88305; 93005; G0378; J0330; J0360; J1956; J2270; J2405; J2704; J2710; J3010; J3490; J7030

== ENCOUNTER 2020-09-28 10:29 | Outpatient (CLI) | payer MEDICARE, OTHER, SELFPAY ==
--- NOTE | 2020-09-28 10:30 | FL_ITS ---
WS: [id number] Cystogram with fluoroscopy. HISTORY: Recent cystoscopy with tumor removal. Fluoroscopy time: 1.0 minutes. Clipper Machine Operator radiograph is first submitted. Moderate fecal retention. Surgical sutures are noted within the RIGHT pelvis. Extensive degenerative changes within the lumbar spine and at the hip joints bilaterall y. Patient arrives with a Dominique catheter in position. Procedure is explained to the patient. Less than 50 cc of Cysto-Conray inserted into the bladder via Dominique catheter. There is irregularity i nvolving the wall of the bladder. Patient could only tolerate mild distention of the bladder before c omplaining of significant discomfort. During filling the bladder there is a focal collection of contr ast extending into the LEFT pelvis. As this is a well formed collection favor this is probably a blad rah diverticulum and not extravasation from a perforation. As we drained the contrast from the bladde r this LEFT collection also became smaller. No persistent free flowing contrast is identified. FL/FL cystogram 34035 IMPRESSION: 1. Small urinary bladder. Patient was only able to tolerate mild distention of the bladder. 2. There is a focal collection of contrast extending into the LEFT pelvis. I fa vor this is probably a bladder diverticulum and not a bladder perforation due t o its appearance.
== END 2020-09-28 10:30 | disposition home or self-care (01) ==
LOC: RAD 10:37
PROVIDERS: PCP Registered Nurse; Visit Provider Urology
DX: N32.9 Bladder disorder, unspecified (principal)
CPT/HCPCS: 74430

== ENCOUNTER 2020-10-04 08:08 | Outpatient (CLI) | payer MEDICARE, OTHER, SELFPAY ==
[2020-10-04] MEDS: iohexol 300 mg/mL 100 mL Btl IV (08:23)
--- NOTE | 2020-10-04 09:30 | CT_ITS ---
WS: [id number] CT ABDOMEN PELVIS TECHNIQUE: Noncontrast CT of the abdomen and contrast-enhanced CT of the abdomen and pelvis with leslee nal and sagittal reformatted images. CLINICAL INFORMATION: LESION OF BLADDER COMPARISON: Cystogram September 2020 DLP: 1720.[address] scans at [facility] use at least one of these dose optimization techniques: automat ed exposure control; mA and/or kV adjustment per patient size (includes targeted exams where dose is matched to clinical indication); or iterative reconstruction. FINDINGS: There is a 3.2 x 2.5 x 3.8 cm left bladder diverticulum with air-fluid level. This corresponds to the lesion seen on the recent cystogram. Wide mouth opening to the bladder measuring 8.8 mm. Marked diff use enhancing bladder wall thickening can be seen with chronic cystitis or bladder outlet obstruction . Bladder carcinoma not entirely excluded. Evidence of prior TURP. Small amount of free fluid in the pelvis. Normal bilateral renal parenchymal enhancement. Prominent extrarenal pelvises bilaterally. Mild right hydronephrosis. Bilateral ureterectasis likely due to bladder outlet obstruction. No obstructing bud al or ureteral calculi. Small bilateral renal cysts. Largest renal cyst in the left measuring 2.2 x 2 .1 cm. Smaller subcentimeter bilateral renal cysts some of which are too small to definitively charac terize. Small esophageal hiatal hernia. Lung bases are well aerated. Aortic calcification. Small infrarenal a bdominal aortic aneurysm measuring 2.1 x 2.6 cm AP by transverse. Mild fatty atrophy of the pancreas. Mild diffuse fatty infiltration liver. Normal portal vein and spl enic vein. Mild gallbladder wall enhancement likely due to cholesterolosis. Small polyp in the gallbl adder fundus measuring 9 mm. Gallbladder can be further evaluated ultrasound. Slightly delayed emptying on the delayed images with layering contrast in the extrarenal pelvis sees. Sigmoid diverticulosis. No evidence of acute diverticulitis. Scattered stool in normal caliber colon . No evidence of high-grade small or large bowel obstruction. Grade 1 anterolisthesis L5 on S1 with b ilateral pars defects. CT/CT abdomen pelvis wo/w [id number] IMPRESSION: 1. Left bladder diverticulum measuring 3.2 x 2.5 x 3.8cm with air-fluid level well mild opening. This corresponds to findings on recent cystogram. 2. Marked enhancing diffuse bladder wall thickening measuring 2.0 cm can be se en with bladder outlet obstruction or chronic cystitis. Bladder carcinoma not e xcluded. Recommend correlation with cystoscopy. Evidence of prior TURP. 3. Small amount of free fluid in the pelvis. 4. Mild right hydronephrosis with bilateral ureterectasis. Prominent extrarena l pelvises bilaterally. 5. Mucosal enhancement involving the distal right ureter. Recommend correlatio n for infection versus history of TCC. 6. Delayed emptying bilaterally on the nephrographic phase with contrast layer ing in the extra renal pelvises. 7. Enhancing 9 mm suspected gallbladder polyp in the fundus of the gallbladder . This can be further evaluated with ultrasound.
== END 2020-10-04 08:09 | disposition home or self-care (01) ==
LOC: CT 08:10
PROVIDERS: PCP Registered Nurse; Visit Provider Urology
DX: N32.9 Bladder disorder, unspecified (principal); N32.3 Diverticulum of bladder; N13.30 Unspecified hydronephrosis; N13.4 Hydroureter
CPT/HCPCS: 74178; 80053; 81003; 85025

== ENCOUNTER 2020-10-19 12:50 | Outpatient (CLI) | payer MEDICARE, OTHER, SELFPAY ==
--- NOTE | 2020-10-19 18:28 | ONC CON_ITS ---
Dr. Sherman New Patient Note Patient: Alden Castillo Unit #: [id number]: 1935 Dicatated By: Constantin Sherman M.D.Date of Visit: Oct 19, 2020 Onc MED New Patient/Consult Referring Physician: Dr. Aguilar Orlando M.D. Chief Complaint: Bladder cancer. 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 He has multiple medical illnesses including hypertension, hyperlipidemia, type 2 diabetes, and coronary artery disease. He has a history of myocardial infarction, and he underwent coronary angioplasty/stent placement in 2006. He also has a prior history of nephrolithiasis. He was seen by Dr. Orlando in September 2010 for evaluation of hematuria. At that time he also had been having bladder outlet symptoms. His outpatient cystoscopy on 09/15/2010 showed a distinct area of abnormality on the right lateral and anterior bladder wall measuring in the range of 5 to 6 cm, appearance of which was felt to be consistent with transitional cell carcinoma. The findings were noted to be worrisome for both carcinoma in situ and papillary TCCA. He then underwent cystoscopy with transurethral resection of bladder tumor on 09/22/2020. Pathology showed high-grade urothelial carcinoma with muscularis propria and detrussor involvement. 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 His staging CT abdomen/pelvis on 10/04/2020 showed a left bladder diverticulum measuring 3.2 x 2.5 x 3.8 cm with associated air-fluid level. There was marked diffuse enhancing bladder wall thickening consistent with chronic cystitis or bladder outlet obstruction. There was mild right hydronephrosis with bilateral ureterectasis, likely due to bladder outlet obstruction. There was mucosal enhancement involving the distal right ureter. An enhancing lesion in the fundus of the gallbladder measuring 9 mm was felt to be consistent with gallbladder polyp. There was no lymphadenopathy or other evidence of metastatic disease reported. His preoperative chest x-ray showed a small right pleural effusion with no other significant abnormalities noted. His since then been seen by Dr. Abhijeet Umanzor at the [facility] for further surgical management. He has been offered the option undergo cystectomy. I am asked to see him in regard to possible neoadjuvant chemotherapy or chemoradiation. He does complain that he has been feeling tired, though some of this may be associated with depression, as he had have his placed in a longterm in July, and he is now living alone. 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 His ECOG score is 1. He says he does not eat right, but his family indicates that his weight has been stable. He does not have fever or night sweats. He does not complain of shortness of breath, cough, or chest pain. He has no GI complaints. He has urinary frequency and he does have some pain with voiding. He also continues to have some hematuria, and he also is having bladder incontinence. He has no significant joint or bone pain. He does not complain of headache. He has no numbness/paresthesia or other focal neurologic symptoms. Past Medical History: His medical history includes coronary artery disease, hyperlipidemia, hypertension, nephrolithiasis, and type II diabetes. Past Surgical History: He underwent TURBT on 09/22/2020. His other surgical/procedural history consists of appendectomy, coronary angioplasty/stent placement in 2006, and open procedure for removal of kidney stone in 1981. He also has a history of lithotripsy, Medications: Allopurinol 1 Tablet (of 100 mg) Oral daily, Aspirin 81 2 Tablet (of 81 mg) Tablet, chewable Oral daily, Carvedilol 1 Tablet (of 12.5 mg) Oral daily, Daily Value Multivitamin 1 Tablet Oral daily, EQL Fish Oil 1 Capsule (of 1000 mg) Oral daily, Lisinopril 1 Tablet (of 10 mg) Oral daily, metFORMIN HCl 1 Tablet (of 500 mg) Oral daily, Potassium Citrate ER 1 Tablet (of 10 meq ) Tablet, controlled release Oral b.i.d., Simvastatin 1 Tablet (of 40 mg) Oral daily Allergies: Shellfish Social History: Mr. Castillo is . Mr. Castillo no longer smokes but had smoked 0.5 packs/day. He has no history of drinking. He is retired from the [employer]. 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 As of July she was placed in a longterm, and he has since then been living alone. He has a history of smoking 1/2 pack of cigarettes daily for 15 to 20 years. He quit smoking at least 30 years ago. He does not drink alcohol. Family History: Father of heart attack at age 48. Mother of breast cancer, also at age 48. A brother of a brain tumor at age 70. Two other brothers and a sister are in good health. Review Of Symptoms: Constitutional - He complains that he feels tired, but he lives independently and does all his housework. He says that he does not eat right, but family indicates that his weight is stable. He does not have fever or night sweats. ECOG score is 1, Eyes - No change in vision, ENMT - He has some hearing loss. No tinnitus. No sinus congestion/drainage. No mouth sores. No sore throat or difficulty swallowing, Hematologic/Lymphatic - He has easy bruising, Respiratory - No shortness of breath. No cough. No pleuritic pain or hemoptysis, Cardiovascular - No angina pain. No palpitations, Gastrointestinal - No nausea or vomiting. No heartburn or acid reflux. No diarrhea or constipation. No blood in the stool or black stools, Genitourinary (M) - He has been having hematuria. He also reports having urinary frequency and dysuria, and he has having significant bladder incontinence, Musculoskeletal - He has no significant joint or bone pain, Integumentary - He sees a catalyst impregnator for treatment of actinic keratoses, Neurologic - No headache. He has some orthostatic dizziness. No numbness or tingling. No other focal neurologic symptoms. He does have some memory loss and some mild cognitive issues, Psychiatric - He has been having some depression since July when his was placed in a longterm. He sleeps okay most of the time. Vital Signs: Performed on Oct 19, 2020 14:30: 7, 0, 0.00, 0.00 sq.m, 98 %, 64 /min, 18 /min, 173/77 mm(hg) (HIGH), 98.3 F (LOW), and 157.6 lbs (HIGH). Physical Examination: Constitutional - He appears somewhat frail generally, but not acutely ill, Eyes - Sclerae nonicteric. Conjunctivae clear, ENMT - No lesions noted in the oral cavity, Neck - No mass or thyromegaly, Hematologic/Lymphatic - No cervical, clavicular, or axillary adenopathy, Respiratory - Lungs are clear with good air movement bilaterally, Cardiovascular - Heart rhythm is regular. There is no murmur, gallop, or rub noted, Abdomen - Soft and non-tender. Liver and spleen are not enlarged. There is no abdominal mass or ascites noted and there is no inguinal adenopathy, Back/Spine - No spine or CVA tenderness noted, Extremities - Slight edema. Pedal pulses are palpable bilaterally, Integumentary - No rashes. There are a few actinic lesions on the arms, and there is some chronic purpura., Neurologic - No focal neurologic deficits noted. Lab/Imaging: Laboratory studies on 10/04/2020 included CBC showing hemoglobin 13.6 g, white blood cell count 8200, and platelet count 245,000. Comprehensive metabolic profile showed normal renal function with BUN 15 and creatinine 0.7 mg/dL. The bilirubin and liver enzymes were normal. Problem List: 1. High-grade urothelial carcinoma involving the right bladder wall. He underwent TURBT on 09/22/2020. Pathology showed invasion of muscularis propria and detrussor muscle. By clinical evaluation, his disease is stage II (T2b, N0, M0). 2. He has been having symptoms of bladder outlet obstruction and there was CT evidence of diffuse bladder wall thickening and mild hydronephrosis of the right kidney. 3. He has a history of nephrolithiasis. 4. Hypertension. 5. Hyperlipidemia. 6. Type 2 diabetes. 7. Coronary artery disease with previous angioplasty/stent placement. Problems Addressed with this Encounter and Plan: Patient with high-grade urothelial carcinoma involving the right bladder wall, primary tumor estimated to be at least 5-6 cm. He underwent TURBT on 09/22/2020. Pathology showed invasion of muscularis propria and detrussor muscle. By clinical evaluation, his disease is stage II (T2b, N0, M0). He also has been having symptoms of bladder outlet obstruction and there was CT evidence of diffuse bladder wall thickening and mild hydronephrosis of the right kidney. He has seen Dr. Umanzor at the [facility] and he has been offered the option to undergo cystectomy. Given his age and general frailty, I am reluctant to recommend neoadjuvant chemotherapy, as I feel that it would carry a high risk for severe toxicities. In discussion with the patient and his daughter, she indicates that the entire family has come to the same conclusion. I also discussed the option of chemoradiation as an alternative to surgery, but I am not inclined to recommend it, as it would, in all likelihood, still leave him with significant bladder symptoms. Overall, I think the best option is to proceed with the cystectomy, and he can be reevaluated for postoperative adjuvant chemotherapy if his disease turns out to be more advanced than expected. I will plan now to call Dr. Umanzor so that he can proceed with arrangements for the surgery. Signed By: Constantin Sherman M.D. <<Signature on File>>
== END 2020-10-19 12:51 | disposition home or self-care (01) ==
PROVIDERS: PCP Registered Nurse; Visit Provider Internal Medicine Medical Oncology
DX: C67.2 Malignant neoplasm of lateral wall of bladder (principal); N13.30 Unspecified hydronephrosis; Z87.442 Personal history of urinary calculi; E11.9 Type 2 diabetes mellitus without complications; E78.5 Hyperlipidemia, unspecified; I10 Essential (primary) hypertension; I25.10 Atherosclerotic heart disease of native coronary artery without angina pectoris; Z95.5 Presence of coronary angioplasty implant and graft; Z95.1 Presence of aortocoronary bypass graft
CPT/HCPCS: 99205

== ENCOUNTER → 2020-11-01 09:01 | Outpatient (BNVA) | payer MEDICARE, OTHER, SELFPAY | PROVIDERS: PCP Registered Nurse; Visit Provider Urology | DX: Z20.822 Contact with and (suspected) exposure to COVID-19 (principal); Z01.812 Encounter for preprocedural laboratory examination | CPT/HCPCS: 87635 ==